=== PATIENT | female | born 1985 | race Caucasian/White ===

== ENCOUNTER → 2016-10-14 | Outpatient (CLI) | payer BC ==
[2015-10-04 10:13] VITALS: BP 110/55
[2016-10-14 15:32] LABS: BASOPHILS % (AUTO) 0.3 % (0.2-1.0); EOSINOPHILS % (AUTO) 0.2 % (0.9-2.9); HEMOGLOBIN 10.2 g/dL (12.0-16.0); LYMPHOCYTES # (AUTO) 2.4 X10^3/uL (1.3-2.9); LYMPHOCYTES % (AUTO) 17.5 % (21.0-51.0); MEAN CORPUSCULAR VOLUME 88.4 fL (80.0-100.0); MEAN PLATELET VOLUME 8.7 fL (7.4-11.0); MONOCYTES # (AUTO) 0.7 x10^3/uL (0.3-0.8); NEUTROPHILS # (AUTO) 10.4 x10^3/uL (2.2-4.8); PLATELET COUNT 277 X10^3/uL (150.0-450.0); RED BLOOD COUNT 3.28 X10^6/uL (3.5-5.4); RED CELL DISTRIBUTION WIDTH 13.4 % (11.6-16.5); WHITE BLOOD COUNT 13.5 X10^3/uL (3.6-10.0)
[2016-10-14 15:32] LABS: BILIRUBIN,URINE NEGATIVE (NEGATIVE); BLOOD/HEMOGLOBIN,URINE NEGATIVE (NEGATIVE); GLUCOSE, URINE NEGATIVE (NEGATIVE); KETONES,URINE NEGATIVE (NEGATIVE); LEUKOCYTE ESTERASE ,URINE NEGATIVE (NEGATIVE); NITRITES,URINE NEGATIVE (NEGATIVE); PROTEIN,URINE NEGATIVE (NEGATIVE); UROBILINOGEN,URINE NORMAL (NORMAL)
[2016-10-14 16:03] LABS: AMORPHOUS SEDIMENT,UR TRACE /HPF (NEGATIVE); APPEARANCE,URINE CLEAR (CLEAR); BACTERIA,URINE 1+ /HPF (NEGATIVE); COLOR,URINE YELLOW (YELLOW); MUCUS,URINE FEW /HPF (NEGATIVE); RBC,URINE 0-2 /HPF (NEGATIVE); SQUAMOUS EPITHELIAL CELL,UR FEW /HPF (NEGATIVE)
[2016-10-14 16:27] LABS: BLOOD UREA NITROGEN 5 mg/dL (7-18); CALCIUM 8.4 mg/dL (8.5-10.1); CARBON DIOXIDE 23.4 mmol/L (21-32); CHLORIDE 106 mmol/L (98-107); COR NA(FOR HYPERGLY) 139 mmol/L (136-145); CREATININE 0.73 mg/dL (0.55-1.02); GLUCOSE 119 mg/dL (65-99); SODIUM 139 mmol/L (136-145); eGFR BLACK RACES > 60 (>60); eGFR NON BLACK RACES > 60 (>60)
== END ==
LOC: LAB 14:39
PROVIDERS: ATTEND Specialist
DX: Z01.818 Encounter for other preprocedural examination (principal); Z34.83 Encounter for supervision of other normal pregnancy, third trimester
CPT/HCPCS: 36415; 80048; 81001; 85025; 85610; 85730; 86592; 86850; 86900; 86901

== ENCOUNTER 2016-10-22 06:30 | Inpatient (IN) | payer BC ==
[2016-10-22] MEDS ORDERED: DECADRON INJ ONE (06:49)
[2016-10-22] MEDS ORDERED: DURAMORPH ONE (06:49)
[2016-10-22] MEDS ORDERED: PEPCID 20 MG IV PREMIX* 20 MG/50 ML BAG IV ONE (06:49)
[2016-10-22] MEDS ORDERED: LR 1000 ML IV 1,000 ML IV ONE ×2 (06:52→07:11)
[2016-10-22] MEDS ORDERED: NS 50 ML IV + SPIKE MINIBAG* 50 ML IV ONE (06:53)
[2016-10-22] MEDS ORDERED: FENTANYL INJ 100 mcg ONE (07:08)
[2016-10-22] MEDS ORDERED: D5 1/2 NS 1000ML W PITOCIN 20 U/L 1,000 ML IV ONE (07:11)
[2016-10-22] MEDS: ANCEF VIAL 1 GM ONE ×2 (07:14→07:20)
[2016-10-22] MEDS ORDERED: NS IRRIGATION 1000 ML 1,000 ML IR ONE (08:09)
[2016-10-22] MEDS ORDERED: ZOFRAN INJ 4 MG VIAL IVP PRN ×2 (08:43→09:22)
[2016-10-22] MEDS ORDERED: REGLAN INJ 10 MG VIAL IVP PRN ×2 (08:43→09:22)
[2016-10-22] MEDS ORDERED: PHENERGAN INJ 25 MG IVP PRN (08:43)
[2016-10-22] MEDS ORDERED: BENADRYL INJ 50 MG VIAL IVP PRN ×2 (08:43→09:22)
[2016-10-22] MEDS ORDERED: D5 1/2 NS 1000 ML 1,000 ML with PITOCIN 20 UNITS IV SCH ×2 (09:22)
[2016-10-22] MEDS ORDERED: PERCOCET TAB 5/325 MG PO PRN (09:22)
[2016-10-22] MEDS ORDERED: ADACEL TDaP IM ONE (09:22)
[2016-10-22] MEDS ORDERED: ANCEF VIAL 1 GM 1 GM in NS 50 ML IV + SPIKE MINIBAG* 50 ML IV PRN (09:22)
[2016-10-22] MEDS ORDERED: HYPERRHO S/D (or RHOGAM) IM PRN (09:22)
[2016-10-22] MEDS ORDERED: MYLICON TAB 80 MG CHEW PO PRN (09:22)
[2016-10-22] MEDS: TORADOL 30 MG VIAL IVP PRN ×2 (11:13→18:11)
[2016-10-22] MEDS: ZANTAC PO SCH (13:00)
[2016-10-22] MEDS: PRENATAL PLUS PO SCH (13:00)
[2016-10-22] MEDS ORDERED: DIPRIVAN VIAL ONE (15:18)
[2016-10-22] MEDS ORDERED: EPHEDRINE SULFATE INJ ONE (15:18)
[2016-10-22] MEDS ORDERED: ZOFRAN INJ 4 MG VIAL ONE (15:18)
[2016-10-22] MEDS ORDERED: REGLAN INJ 10 MG VIAL ONE (15:18)
[2016-10-23] MEDS: TORADOL 30 MG VIAL IVP PRN ×2 (00:11→06:28)
[2016-10-23] MEDS: ZANTAC PO SCH ×2 (00:13→08:12)
[2016-10-23 05:26] LABS: HEMATOCRIT 31.2 % (36.0-47.0); HEMOGLOBIN 10.5 g/dL (12.0-16.0)
[2016-10-23] MEDS: D5 1/2 NS 1000 ML 1,000 ML IV SCH ×2 (06:20→11:39)
[2016-10-23] MEDS ORDERED: TORADOL 30 MG VIAL ONE (06:25)
[2016-10-23] MEDS ORDERED: MOTRIN TAB 800 MG PO PRN (07:54)
[2016-10-23] MEDS ORDERED: PERCOCET TAB 5/325 MG PO PRN (07:54)
[2016-10-23] MEDS: PRENATAL PLUS PO SCH (08:12)
[2016-10-23] MEDS ORDERED: COLACE CAP 100 MG PO SCH (09:00)
[2016-10-23 12:40] VITALS: BP 133/82
[2016-10-23] MEDS ORDERED: ADACEL TDaP IM ONE (13:40)
[2016-10-23] MEDS ORDERED: BACTROBAN OINT TOP SCH (14:00)
== END 2016-10-23 15:30 | disposition home or self-care (01) | DRG 766 ==
LOC: LD 06:30 → MED/SURG 09:06
PROVIDERS: ADMIT Specialist; ATTEND Specialist
PROC: 0UB70ZX Excision of Bilateral Fallopian Tubes, Open Approach, Diagnostic (ICD-10-PCS; 2016-10-22)
PROC: 10D00Z1 Extraction of Products of Conception, Low, Open Approach (ICD-10-PCS; principal; 2016-10-22 07:30)
DX: O26.892 Other specified pregnancy related conditions, second trimester (principal); Z37.0 Single live birth; N85.8 Other specified noninflammatory disorders of uterus; O34.211 Maternal care for low transverse scar from previous cesarean delivery; Z30.2 Encounter for sterilization; Z3A.39 39 weeks gestation of pregnancy
CPT/HCPCS: 36415; 85014; 85018; A4216; A4222; S0028; S0197; J0690; J1100; J1885; J2405; J2765; J2790; J3010; J3490; J7120